=== PATIENT | male | born 1970 | race Caucasian/White ===

== ENCOUNTER 2022-11-18 11:03 | Emergency (ER) | payer OTHER ==
[~2022-11-18] VITALS: Ht 185.4 cm; Wt 78.9 kg
[2022-11-18 11:30] LABS: HEMATOCRIT 44.8 % (36.7-47.1); MEAN CORPUSCULAR HEMOGLOBIN 31.8 uug (23.8-33.4); MEAN CORPUSCULAR VOLUME 93.5 fL (73.0-96.2); PLATELET COUNT (AUTO) 263 K/uL (152-348)
[2022-11-18] MEDS ORDERED: ASPIRIN 81 MG TAB.CHEW PO ONE (11:30)
[2022-11-18 11:41] LABS: POTASSIUM 4.4 mmol/L (3.5-5.1)
[2022-11-18] MEDS ORDERED: ASPIRIN 81 MG TAB.CHEW ONE (11:47)
[2022-11-18 11:53] LABS: BILIRUBIN,TOTAL 0.4 mg/dL (0.2-1.0); TOTAL PROTEIN, SERUM 7.6 g/dL (6.4-8.2)
[2022-11-18 14:31] VITALS: BP 115/67
--- NOTE | 2022-11-18 14:34 | NUR ---
Patient discharged to home in stable condition. Written and verbal after care instructions given. Patient verbalizes understanding of instructions. Stressed follow up or return to ER for worsening s/s.
== END 2022-11-18 14:37 | disposition home or self-care (01) ==
LOC: ER 11:03
DX: R07.9 Chest pain, unspecified (principal); R00.1 Bradycardia, unspecified; I45.10 Unspecified right bundle-branch block
CPT/HCPCS: 36415; 71045; 84484; 85025; 93005; A4663